=== PATIENT | male | born 1960 | race American Indian/Alaskan Native ===

== ENCOUNTER 2024-07-13 06:31 | Day surgery (SDC) | payer OTHER ==
[2024-07-11 09:22] VITALS: BP 151/86
[~2024-07-13] VITALS: Ht 175.3 cm; Wt 100.0 kg
[~2024-07-13 06:31] MED LIST: B12 ACTIVE1000 MCG PO; D3-5000125 MCG PO; DICLOFENAC SODI50 MG PO; HYDROCHLOROTHIA25 MG PO; LIPITOR40 MG PO; LISINOPRIL20 MG PO; MIDAZOLAM HCL 5 MG/5 ML VIAL IV PRN; OMEPRAZOLE20 MG PO; TERBINAFINE HC250 MG PO; fentaNYL citrate 100 MCG/2 ML VIAL IV PRN
[2024-07-13 06:39] VITALS: BP 151/74
[2024-07-13] MEDS ORDERED: IBLOOD GLUCOSE TEST STRIP 1 EA TEST VI PRN (07:00)
[2024-07-13] MEDS ORDERED: LIDOCAINE HCL 1% 5 ML SDV INJ ONE (07:00)
[2024-07-13] MEDS ORDERED: LACTATED RINGER'S 1,000 ML IV SCH (07:00)
--- NOTE | 2024-07-13 07:40 | NUR ---
VISITED DURING SPIRITUAL CARE ROUNDS. PT IN OVERALL GOOD SPIRITS, STATES NO CONCERNS; NO OVERT SIGNS OF ANXIETY. MACHINE LEATHER TRIMMER PROVIDED SUPPORTIVE PRESENCE, HOSPITALITY, PRAYER. PT EXPRESSED GRATITUDE.
[2024-07-13] MEDS ORDERED: propofoL 200 MG/20 ML VIAL ONE (08:37)
[2024-07-13] MEDS ORDERED: LIDOCAINE HCL 2% 5 ML SDV ONE (08:37)
--- NOTE | 2024-07-13 09:07 | NUR ---
07/13/24 0907 Ursula Covarrubias 0840- PT ARRIVES TO PACU, LEFT LATERAL POSITION, NON REACTIVE TO STIMULUS. BREATHING EVEN AND NON LABORED, LR INFUSING TO RFA IV. ABD SOFT, NON DISTENDED. ALL MONITORS IN PLACE. 0855- PT CONTINUES TO REST AT THIS TIME, NO SIGNS OF DISTRESS. 0902- PT WOKE ON OWN, LOOKING AROUND, REORIENTED TO TIME AND PLACE. DENIES PAIN AND NAUSEA. ENCOURAGED TO PASS GAS. 0904- PT ROLLED TO BACK ON OWN AND SAT UP IN BED, GRAPE JUICE PROVIDED. PT GIVEN EYE GLASSES.
[2024-07-13 09:15] VITALS: BP 144/95
--- NOTE | 2024-07-13 10:15 | OR ---
[facility] [address] [place], [place] [address] Signed DATE OF OPERATION: 07/13/2024 SURGEON: Shaan Womack MD PREOPERATIVE DIAGNOSIS: Guaiac-positive stool. POSTOPERATIVE DIAGNOSES: 1. Moderate internal hemorrhoids. 2. Internal anal skin tags x3. 3. 5 mm polyps at 5 and 7 cm in rectum. PROCEDURE: Colonoscopy with hot biopsy. ESTIMATED BLOOD LOSS: None. INDICATIONS: Zohaib is a 64-year-old gentleman, asked to see me for his initial colonoscopy. His stool sample in November 2023 came back positive. He said he never sees any blood in the stool. He has no lower GI complaints. There is no family history of colon cancer or polyps. In the office I had given him a brochure on colonoscopy. He understands the nature of the test. There is risk including, but not limited to gas bloating, crampy abdominal pain, bleeding, perforation requiring surgery, and missed diagnosis. We also reviewed the written instructions for the bowel prep line by line. We had him hold the diclofenac three days prior to the procedure. He does use some beer every day and he has very full round face with a heavy neck, chest and abdomen. He also has a full mustache as well. Consequently, we asked for monitored anesthesia care propofol infusion. That worked out well for him today. He understands an adult person has to take him home afterwards. He had expressed understanding and wished to proceed. DESCRIPTION OF PROCEDURE: Zohaib was taken into our endoscopy suite and placed in the left lateral decubitus position. He was given monitored anesthesia care propofol infusion per our nurse record changer tester. A digital rectal exam was performed and this revealed no external hemorrhoids. He had good sphincter tone. There were no masses. The adult colonoscope was introduced and advanced all the way around into the cecum under direct visualization of camera without difficulty. His prep was quite excellent. We could easily see the appendiceal orifice and ileocecal valve. The scope was then slowly withdrawn. He had Electronically Signed By: SHAAN WOMACK MD 07/13/24 1015 PATIENT NAME: ZOHAIB BONE OPERATIVE REPORT DATE OF : 60 REPORT #: [id number] PHYSICIAN: SHAAN WOMACK MD PCP: [facility] REPORT IS CONFIDENTIAL AND NOT TO BE RELEASED WITHOUT AUTHORIZATION [facility] [address] [place], [place] [address] Signed no pathology throughout the colon. In the rectum, he had two small polyps, we removed easily with the hot biopsy forceps and placed into the same specimen jar. Upon retroflexion of scope he does have a moderate internal hemorrhoid column which I suspect is the source of his guaiac-positive stool. He also had three small internal anal skin tags. After this, the gas was suctioned out, colonoscope removed. Zohaib tolerated the procedure quite well. RECOMMENDATIONS: Zohaib will follow up my office in 7 to 14 days to review his results. He will likely need monitored anesthesia care in the future as well. Shaan Womack MD ALB/MODL /[id number] cc: [facility] Shaan Womack MD Copies: [facility] SHAAN WOMACK MD ~ Electronically Signed By: SHAAN WOMACK MD 07/13/24 1015 PATIENT NAME: ZOHAIB BONE LEXIS OPERATIVE REPORT DATE OF : 60 REPORT #: [id number] PHYSICIAN: SHAAN WOMACK MD PCP: [facility] REPORT IS CONFIDENTIAL AND NOT TO BE RELEASED WITHOUT AUTHORIZATION
--- NOTE | 2024-07-14 13:55 | PATH ---
[facility] [address] [place], [place] [address] Signed SPECIMEN(S): A RECTUM, 7 CM SPECIMEN SOURCE: A. RECTUM, 7 CM v CLINICAL HISTORY: Colon screening, history guaiac + stool, internal hemorrhoids, rectal polyps FINAL PATHOLOGIC DIAGNOSIS: Rectum, 7 cm, polypectomy: - Tubular adenoma BRP MICROSCOPIC EXAMINATION: Histologic sections of all submitted blocks are examined by light microscopy. These findings, together with the gross examination, support the pathologic diagnosis. GROSS DESCRIPTION: The specimen, labeled and designated "Maynor rectum, 7 cm," is received in formalin and consists of two ferguson soft tissue fragments, ranging from 0.2-0.5 cm. Entirely submitted in (A1). VB (under the direct supervision of a pathologist) The Gross Description was prepared using a voice recognition system. The report was reviewed for accuracy; however, sound-alike word errors, addition and/or deletions may occur. If there is any question about this report, please contact Client Services. ADDITIONAL NOTES: Immunohistochemical and/or in situ hybridization studies if performed in this case included appropriate positive controls that reacted as expected. This test was developed and its performance characteristics determined by [facility]. It has not been cleared or approved by the U.S. Food and Drug Administration. The FDA has determined that such clearance or approval is not necessary. This test is used for clinical purposes. It should not be regarded as investigational or for research. [facility] is certified under the Clinical Laboratory Improvement Amendments of 1988 (CLIA) as qualified to perform high complexity clinical laboratory testing. PATIENT NAME: ZOHAIB BONE PATHOLOGY DATE OF : 60 REPORT #: [id number] PHYSICIAN: HENRY FARIA PCP: [facility] REPORT IS CONFIDENTIAL AND NOT TO BE RELEASED WITHOUT AUTHORIZATION [facility] [address] [place] [place], [place] [address] Signed PERFORMING LABORATORY: Technical component was performed by [facility], [address] [place] [address] (CLIA# [id number]). Professional interpretation was performed by [facility], [address] [place] [address] (CLIA#: [id number]). Diagnostician: Neftali Richter MD Pathologist Electronically Signed 07/14/2024 Copies: ~ PATIENT NAME: ZOHAIB BONE PATHOLOGY DATE OF : 60 REPORT #: [id number] PHYSICIAN: HENRY FARIA [facility] REPORT IS CONFIDENTIAL AND NOT TO BE RELEASED WITHOUT AUTHORIZATION
== END 2024-07-13 09:20 | disposition home or self-care (01) ==
LOC: DS 06:31
PROVIDERS: ATTEND Colon & Rectal Surgery
PROC: 0DBP8ZZ Excision of Rectum, Via Natural or Artificial Opening Endoscopic (ICD-10-PCS; principal; 2024-07-13 08:05)
DX: Z12.11 Encounter for screening for malignant neoplasm of colon (principal); D12.8 Benign neoplasm of rectum; K64.8 Other hemorrhoids; I10 Essential (primary) hypertension; E78.5 Hyperlipidemia, unspecified; K21.9 Gastro-esophageal reflux disease without esophagitis; M19.90 Unspecified osteoarthritis, unspecified site; E66.9 Obesity, unspecified; Z68.31 Body mass index [BMI] 31.0-31.9, adult; Z79.899 Other long term (current) drug therapy
CPT/HCPCS: 00811; J2003; J2704